=== PATIENT | male | born 2000 | race African-American/Black ===

== ENCOUNTER 2023-08-08 13:40 | Outpatient (REF) | payer BC, SELFPAY ==
--- NOTE | ~2023-08-08 | MR_ITS ---
EXAMINATION: MR KNEE WITHOUT CONTRAST, LEFT CLINICAL INFORMATION: OCD cartilage transfer. Left knee swelling. Status post surgery February 2023. COMPARISON: None available. TECHNIQUE: MRI of the knee without contrast was performed using routine sequences on a high-field scanner. FINDINGS: MENISCI: Medial Meniscus: Intact Lateral Meniscus: The anterior horn is thin in caliber, with heterogeneous T2 signal. The body is fully laterally extruded from the joint space. Question fraying of the posterior root, motion artifact limiting evaluation. LIGAMENTS: Cruciate: Intact Collateral: Intact EXTENSOR MECHANISM: Intact ARTICULAR CARTILAGE/BONE: Patellofemoral Compartment: Chondral heterogeneity and focal subchondral T2 signal in the central trochlea. No focal cartilage loss is otherwise seen. Medial Compartment: No significant chondral loss. Lateral Compartment: Osteochondral focus in the posterior femoral condyle at the junction of the weight-bearing and nonweight-bearing portion. This measures approximately 2.8 cm AP, 1.6 cm transverse, 1.3 cm in depth. This is heterogeneous signal on T2. There is some irregularity of the chondral surface. There is mild-moderate edema in the surrounding femoral condyle. These findings could be related to postsurgical result from the OCD cartilage transfer. Small focus of T2 signal at the base of the lesion could be related to postsurgical result with early changes of instability/loosening not entirely excluded. Tibial cartilage is intact. JOINT FLUID AND BURSAE: Moderate effusion. No significant Perez's cyst. MR/MR knee LT wo con IMPRESSION: 1. Lateral meniscus is abnormal.. The anterior horn is thin in caliber, with heterogeneous T2 signal. The body is completely laterally extruded from the joint space. Question fraying of the posterior root. Correlate with prior imaging and prior surgical history. 2. Osteochondral findings in the posterior lateral femoral condyle measuring approximately 2.8 x 1.6 x 1.3 cm. These findings could represent postsurgical result from the OCD cartilage transfer. Small focus of T2 signal the base of the lesion could be related to postsurgical result with early changes of loosening/instability not entirely excluded. There is mild-moderate edema in the lateral femoral condyle, nonspecific, needs clinical correlation for significance. Follow-up imaging for reassessment as clinically indicated. 3. Moderate effusion.
== END 2023-08-08 13:41 | disposition home or self-care (01) ==
LOC: HO.MRI 13:40
PROVIDERS: Visit Provider Family Medicine
DX: M25.562 Pain in left knee (principal)
CPT/HCPCS: 73721

== ENCOUNTER 2024-01-28 08:18 | Outpatient (REF) | payer BC, SELFPAY ==
--- NOTE | ~2024-01-28 | MR_ITS ---
EXAMINATION: MR HAND WITHOUT CONTRAST, RIGHT CLINICAL INFORMATION: Second digit pain following injury. Question interphalangeal dislocation. COMPARISON: None available. TECHNIQUE: Multisequence MR imaging of the right hand was obtained without contrast on a high-field strength scanner. FINDINGS: BONE: Mild marrow edema within the fifth proximal phalangeal head and base of the fifth middle phalanx which could represent osseous contusions. No fracture. No additional abnormal marrow signal. No dislocation. Intact articular cartilage. No periarticular erosion. No concerning lytic or blastic osseous lesion. MUSCLES/TENDONS: Trace fluid and edema within the fifth flexor digitorum tendon sheath, consistent with mild tenosynovitis. No transverse tendon tear or tendon retraction. LIGAMENTS: Mild thickening of the fifth proximal interphalangeal radial and ulnar collateral ligaments with adjacent soft tissue edema, consistent with grade 1 sprain/partial tears. No measurable full-thickness defect. The remaining collateral ligaments are intact. No abnormality within the second digit. SOFT TISSUES: Along the dorsal aspect of the second metacarpal head, there is a lobulated, simple cyst measuring up to 1.0 cm, consistent with a synovial recess or ganglion cyst. No additional soft tissue mass or fluid collection. No joint effusion. MR/MR hand RT wo con IMPRESSION: 1. Mild marrow edema within the fifth proximal phalangeal head and base of the fifth middle phalanx which could represent osseous contusions. No fracture line. 2. Grade 1 sprain/partial tears of the fifth proximal interphalangeal radial and ulnar collateral ligaments with adjacent soft tissue edema. No measurable full-thickness defect. 3. Mild fifth flexor digitorum tenosynovitis. No transverse tendon tear or tendon retraction. 4. Synovial recess or ganglion cyst along the dorsal aspect of the second metacarpal head measuring up to 1.0 cm. Electronically signed by: Matthew Rodas MD 01/28/2024 09:33 AM [facility] [place]
== END 2024-01-28 08:19 | disposition home or self-care (01) ==
LOC: HO.MRI 08:18
PROVIDERS: Visit Provider Family Medicine
DX: M79.644 Pain in right finger(s) (principal)
CPT/HCPCS: 73218